=== PATIENT | male | born 1995 | race African-American/Black ===

== ENCOUNTER 2025-06-24 11:03 | Emergency (ER) | payer MEDICAID ==
[~2025-06-24] VITALS: Ht 167.6 cm; Wt 78.0 kg
[2025-06-24 11:06] VITALS: O2SAT 100
[2025-06-24 11:07] VITALS: TEMP 36.9; O2SAT 100
[2025-06-24] MEDS ORDERED: MAG-55 MT (11:28)
[2025-06-24] MEDS ORDERED: TOPUD PO (11:28)
[2025-06-24 12:21] VITALS: BP 136/76; PULSE 73; RESP 18
[2025-06-24] MEDS: DEXAMETHASONE 4MG TABLET PO ONE (12:21)
[2025-06-24] MEDS: IBUPROFEN 400MG TABLET PO ONE (12:21)
[2025-06-24] MEDS: MAGNESIUM/ALUMINUM HYDROXIDE/SIMETHICONE 30ML UDC PO ONE (12:21)
[2025-06-24] MEDS: VISCOUS LIDOCAINE 2% 15 ML UDC MM STA (12:21)
== END 2025-06-24 12:32 | disposition home or self-care (01) ==
LOC: ER 11:03
DX: J02.9 Acute pharyngitis, unspecified (principal); Z87.891 Personal history of nicotine dependence; Z79.52 Long term (current) use of systemic steroids; Z79.899 Other long term (current) drug therapy
CPT/HCPCS: 99284; 87430; J8540